=== PATIENT | male | born 1955 | race African-American/Black ===

== ENCOUNTER 2016-12-03 12:38 | Inpatient (IN) | payer OTHER ==
[2016-12-03 13:56] VITALS: BMI 21.1
[2016-12-03 16:27] LABS: MCH 26.4 pg (25.7-33.7); MEAN CELL VOLUME 82.6 fl (80-96); MEAN PLT VOLUME 10.5 fl (7.5-11.1); PLATELET COUNT 378 K/MM3 (134-434); WHITE BLOOD COUNT 15.3 K/mm3 (4.0-10.0)
[2016-12-03 16:53] LABS: ALBUMIN 4.5 g/dl (3.4-5.0); BILIRUBIN,TOTAL 0.7 mg/dL (0.2-1.0); CALCIUM 9.7 mg/dL (8.5-10.1); CREATININE 1.8 mg/dL (0.7-1.3); TOT PROT 9.3 g/dl (6.4-8.2)
--- NOTE | 2016-12-03 17:02 | HP ---
Admission [facility] - [facility] Chief Complaint: I want to stop using crack/cocaine Allergies/Adverse Reactions: Allergies Allergy/AdvReac Type Severity Reaction Status Date / Time No Known Allergies Allergy Verified 12/03/16 16:37 History of Present Illness: 61 year old male with long hx of crack/cocaine use. Longest sobriety has been 2 years (1987). Reports history of Hep C, but has never been treated. Last rehab AC, ~ 1 and half ago. [facility], about 4 years ago Exam Limitations: Physical Impairment (walks with cane) - Ebola screening Have you traveled outside of the country in the last 21 days: No Have you had contact with anyone from an Ebola affected area: No Have you been sick,other than usual withdrawal symptoms: No Do you have a fever: No - Review of Systems Constitutional: No Symptoms Reported EENT: reports: Other (Blind in Right Eye- Secondary to glaucoma/infection) Respiratory: reports: No Symptoms reported Cardiac: reports: No Symptoms Reported GI: reports: No Symptoms Reported : reports: No Symptoms Reported Integumentary: reports: No Symptoms Reported Neuro: reports: No Symptoms reported Hematology: reports: No Symptoms Reported Psychiatric: reports: No Sypmtoms Reported, Orientated x3 Patient History - Patient Medical History Hx Anemia: No Hx Asthma: No Hx Chronic Obstructive Pulmonary Disease (COPD): No Hx Cancer: No Hx Cardiac Disorders: No Hx Congestive Heart Failure: No Hx Hypertension: Yes Hx Hypercholesterolemia: Yes (ON MED) Hx Pacemaker: No HX Cerebrovascular Accident: No Hx Seizures: No Hx Dementia: No Hx Diabetes: No Hx Gastrointestinal Disorders: No Hx Liver Disease: No Hx Genitourinary Disorders: No Hx Sexually Transmitted Disorders: No Hx Renal Disease (ESRD): No Hx Thyroid Disease: No Hx Human Immunodeficiency Virus (HIV): No (NEGATIVE HX) Hx Hepatitis C: Yes (NO [place]) Hx Depression: No Hx Suicide Attempt: No Hx Bipolar Disorder: No Hx Schizophrenia: No Other Medical History: Gout, Arthritis - Patient Surgical History Past Surgical History: Yes Hx Neurologic Surgery: No Hx Cataract Extraction: No Hx Cardiac Surgery: No Hx Lung Surgery: No Hx Breast Surgery: No Hx Breast Biopsy: No Hx Abdominal Surgery: Yes (LEFT INGUINAL HERNIA REPAIR-DATE UNKN ;RIGHT INGUINAL HERNIA REPAIR 05/09/15) Hx Appendectomy: No Hx Cholecystectomy: No Hx Genitourinary Surgery: No Hx Section: No Hx Orthopedic Surgery: No Anesthesia Reaction: No - PPD History Documented Results: Negative w/o proof Date: 03/14/15 Results: 0 MM PPD to be Administered?: Yes - Reproductive History Patient is a Female of Child Bearing Age (11 -55 yrs old): No - Smoking Cessation Smoking history: Current every day smoker Have you smoked in the past 12 months: Yes Aproximately how many cigarettes per day: 20 Hx Chewing Tobacco Use: No Initiated information on smoking cessation: Yes 'Breaking Loose' booklet given: 12/03/16 - Substance & Tx. History Hx Alcohol Use: No Hx Substance Use: Yes Substance Use Type: Cocaine Hx Substance Use Treatment: Yes - Substances Abused Crack Route: Smoking Frequency: Daily Amount used: $100 Age of first use: 28 Date of Last Use: 12/03/16 Marijuana/Hashish Route: Smoking Frequency: No use in 30 days Amount used: 1 joint Age of first use: 12 Date of Last Use: 12/03/15 Family Disease History - Family Disease History Family Disease History: Diabetes: Mother (HTN ), Other: Grandparent ( ), Father (HTN ), Mother Admission Physical Exam [facility] - Vital Signs Vital Signs: Vital Signs - 24 hr 12/03/16 13:54 Temperature 97.5 F L Pulse Rate 96 H Respiratory 20 Rate Blood Pressure 116/83 - Physical General Appearance: Yes: Appropriately Dressed HEENTM: Yes: Hearing grossly Normal, Other (Blind in right eye ~ 2 cm soft mobile mass, non tender) Respiratory: Yes: Chest Non-Tender, Lungs Clear, Normal Breath Sounds Neck: Yes: Supple Breast: Yes: Breast Exam Deferred Cardiology: Yes: Regular Rhythm, Regular Rate, S1, S2 Abdominal: Yes: Normal Bowel Sounds, Non Tender, Flat, Soft Genitourinary: Yes: Within Normal Limits Back: Yes: Other (~ 7 x 4 cm lower back soft mass, non tender - patient reports present more than 10 years has not changed in size) Extremities: Yes: Within Normal Limits Neurological: Yes: Fully Oriented, Alert, Motor Strength 5/5 Integumentary: Yes: Dry Lymphatic: Yes: Within Normal Limits - Diagnostic (1) Cocaine dependence Current Visit: Yes Status: Chronic Qualifiers: Substance use status: uncomplicated Qualified Code(s): F14.20 - Cocaine dependence, uncomplicated (2) Blindness of right eye Current Visit: Yes Status: Chronic (3) Glaucoma, right eye Current Visit: Yes Status: Chronic Qualifiers: Glaucoma stage: stage unspecified (4) Gout Current Visit: No Status: Inactive (5) Hepatitis C Current Visit: Yes Status: Chronic Qualifiers: Hepatic coma status: without hepatic coma (6) Hypertension Current Visit: Yes Status: Chronic Qualifiers: Hypertension type: essential hypertension Qualified Code(s): I10 - Essential (primary) hypertension (7) Nicotine dependence Current Visit: Yes Status: Chronic Qualifiers: Nicotine product type: cigarettes Substance use status: uncomplicated Qualified Code(s): F17.210 - Nicotine dependence, cigarettes, uncomplicated (8) Arthritis Current Visit: Yes Status: Chronic Cleared for Admission [facility] - Detox or Rehab Claeared for Rehab Admission: Yes S Breath Alcohol Content Breath Alcohol Content: 0 Urine Drug Screen - Results Drug Screen Negative: No Urine Drug Screen Results: BANDAR-Cocaine
[2016-12-03] MEDS ORDERED: ACETAMINOPHEN 325 MG TABLET (FP) PO PRN (17:29)
[2016-12-03] MEDS ORDERED: guaiFENesin/D-METHORPHAN HB 10 ML UNIT-DOSE CUPS PO PRN (17:29)
[2016-12-03] MEDS ORDERED: MAG HYDROX/AL HYDROX/SIMETH 30 ML UNIT-DOSE CUP PO PRN (17:29)
[2016-12-03] MEDS ORDERED: MAGNESIUM HYDROX 2400MG/30ML ORAL SUSPENSION 30 ML CUP PO PRN (17:29)
[2016-12-03] MEDS ORDERED: P-EPHED 60MG/TRIPROLIDI 2.5MG TABLET PO PRN (17:29)
[2016-12-03] MEDS ORDERED: MENTHOL/PHENOL 1 EACH UD MM PRN (17:29)
[2016-12-03] MEDS ORDERED: NICOTINE POLACRILEX 2 MG GUM BC PRN (17:29)
[2016-12-03] MEDS ORDERED: MAGNESIUM CITRATE 300 ML BOTTLE PO PRN (17:29)
[2016-12-03] MEDS ORDERED: LOPERAMIDE HCL 2 MG CAPSULE PO PRN (17:29)
[2016-12-03] MEDS ORDERED: TUBERCULIN PPD 5 TU/0.1ML VIAL ID ONE (20:36)
[2016-12-03] MEDS: THIAMINE HCL 100 MG TABLET (FP) PO SCH (22:02)
[2016-12-03 23:40] LABS: URINE APPEARANCE CLEAR; URINE BILIRUBIN NEGATIVE (NEGATIVE); URINE BLOOD NEGATIVE (NEGATIVE); URINE COLOR YELLOW; URINE GLUCOSE (UA) NEGATIVE (NEGATIVE); URINE KETONE TRACE (NEGATIVE); URINE LEUK ESTERASE NEGATIVE (NEGATIVE); URINE NITRITE NEGATIVE (NEGATIVE); URINE PROTEIN NEGATIVE (NEGATIVE); URINE UROBILINOGEN NEGATIVE E.U./dl (0.2-1.0)
--- NOTE | 2016-12-04 09:23 | HP ---
Psychiatrist Admission - Data Date of interview: 12/04/16 Admission source: Self-referred Identifying data: This is one of the multiple [facility] admission for this 61 years old single Black male,father of 37 years old daughter unemployed on SSI, homeless Medical History: Significant for HTN, Hyperlipidemia, Hep C, Glaucoma Rt Eye, Blind right eye, Gout left foot, Arthritis, S/P CVA and S/P bilateral Inguinal Hernia repair. Smokes cigarettes 1ppd Psychiatric History: Denies history of previous psychiatric treatment Physical/Sexual Abuse/Trauma History: Denies history of physical, sexual abuse as well as DV relationship Additional Comment: Reports history of multiple arrests including one felony conviction. Denies being currently on probation/parole at present Vital Signs: Vital Signs - 24 hr 12/03/16 12/04/16 12/04/16 13:54 01:53 03:30 Temperature 97.5 F L Pulse Rate 96 H Respiratory 20 18 18 Rate Blood Pressure 116/83 12/04/16 06:34 Temperature 98.5 F Pulse Rate 88 Respiratory 18 Rate Blood Pressure 100/70 Allergies/Adverse Reactions: Allergies Allergy/AdvReac Type Severity Reaction Status Date / Time No Known Allergies Allergy Verified 12/03/16 16:37 Date of last physical exam: 12/03/16 Concur with the findings of this exam: Yes - Substance Abuse/Tx History Hx Substance Use: Yes Substance Use Type: Cocaine (Started smoking crack cocaine at age 28, consumes $ 100 worth daily. Last smoked on 12/03/16), Marijuana (Started smoking marijuana at age 12. Last smoked years ago) Hx Substance Use Treatment: Yes (one previous inpt rehab @ [facility] & 3 @ [facility] and 3 inpt rehab @ [facility]) - Admission Criteria Previous failed treatment: Yes Poor recovery environment: Yes Comorbidities: Yes Lacks judgement: Yes Mental Status Exam - Mental Status Exam Alert and Oriented to: Time, Place, Person Cognitive Function: Fair Patient Appearance: Well Groomed Mood: Hopeful, Euthymic Affect: Appropriate Patient Behavior: Cooperative Speech Pattern: Clear Voice Loudness: Normal Thought Process: Intact Thought Disorder: Not Present Hallucinations: Denies Suicidal Ideation: Denies Homicidal Ideation: Denies Insight/Judgement: Fair Sleep: Fair Appetite: Fair Muscle strength/Tone: Normal Gait/Station: Other (walked with a cane(residual stroke)) Psychiatric Findings - Problem List ([place] 1, 2,3) (1) Cocaine dependence Current Visit: Yes Status: Chronic Qualifiers: Substance use status: uncomplicated Qualified Code(s): F14.20 - Cocaine dependence, uncomplicated (2) Nicotine dependence Current Visit: Yes Status: Chronic Qualifiers: Nicotine product type: cigarettes Substance use status: uncomplicated Qualified Code(s): F17.210 - Nicotine dependence, cigarettes, uncomplicated (3) Arthritis Current Visit: Yes Status: Chronic (4) Blindness of right eye Current Visit: Yes Status: Chronic (5) Glaucoma, right eye Current Visit: Yes Status: Chronic Qualifiers: Glaucoma stage: stage unspecified (6) Hepatitis C Current Visit: Yes Status: Chronic Qualifiers: Hepatic coma status: without hepatic coma (7) Hypertension Current Visit: Yes Status: Chronic Qualifiers: Hypertension type: essential hypertension Qualified Code(s): I10 - Essential (primary) hypertension (8) Gout Current Visit: Yes Status: Acute - Initial Treatment Plan Initial Treatment Plan: Monitor progress
[2016-12-04] MEDS: PRENATAL VITAMINS W/ FOLIC ACID TABLET (FP) PO SCH (09:36)
[2016-12-04] MEDS: amLODIPine BESYLATE 10 MG TABLET (FP) PO SCH (09:36)
[2016-12-04] MEDS: NICOTINE 21 MG/24 HOURS TOPICAL PATCH TD SCH (09:36)
[2016-12-04 12:53] LABS: HIV 1 & 2 AB NEGATIVE; HIV 1 AGp24 NEGATIVE
--- NOTE | 2016-12-04 14:26 | EKG ---
Test Reason : Blood Pressure : / mmHG Vent. Rate : 074 BPM Atrial Rate : 074 BPM P-R Int : 166 ms QRS Dur : 110 ms QT Int : 392 ms P-R-T Axes : 074 009 -13 degrees QTc Int : 435 ms NORMAL SINUS RHYTHM VOLTAGE CRITERIA FOR LEFT VENTRICULAR HYPERTROPHY ST ELEVATION, CONSIDER EARLY REPOLARIZATION, PERICARDITIS, OR INJURY ABNORMAL ECG WHEN COMPARED WITH ECG OF 03-DEC-2016 21:09, T WAVE INVERSION NO LONGER EVIDENT IN LATERAL LEADS Confirmed by PAMELLA PAT MD ([id number]) on 12/04/2016 2:25:42 PM Referred By: Confirmed By:PAMELLA PAT MD
--- NOTE | 2016-12-04 14:27 | EKG ---
Test Reason : Blood Pressure : / mmHG Vent. Rate : 077 BPM Atrial Rate : 077 BPM P-R Int : 164 ms QRS Dur : 102 ms QT Int : 386 ms P-R-T Axes : 066 017 -41 degrees QTc Int : 436 ms POOR DATA QUALITY, INTERPRETATION MAY BE ADVERSELY AFFECTED NORMAL SINUS RHYTHM VOLTAGE CRITERIA FOR LEFT VENTRICULAR HYPERTROPHY ST ELEVATION, CONSIDER EARLY REPOLARIZATION, PERICARDITIS, OR INJURY T WAVE ABNORMALITY, CONSIDER INFEROLATERAL ISCHEMIA ABNORMAL ECG NO PREVIOUS ECGS AVAILABLE Confirmed by PAMELLA PAT MD ([id number]) on 12/04/2016 2:27:29 PM Referred By: Confirmed By:PAMELLA PAT MD
[2016-12-04] MEDS: THIAMINE HCL 100 MG TABLET (FP) PO SCH (21:26)
[2016-12-05] MEDS: PRENATAL VITAMINS W/ FOLIC ACID TABLET (FP) PO SCH (09:39)
[2016-12-05] MEDS: amLODIPine BESYLATE 10 MG TABLET (FP) PO SCH (09:39)
[2016-12-05] MEDS: NICOTINE 21 MG/24 HOURS TOPICAL PATCH TD SCH (09:40)
[2016-12-05 10:10] LABS: BASOPHIL 0.4 % (0-2.0); EOSINOPHIL 2.7 % (0-4.5); MCH 26.9 pg (25.7-33.7); MCHC 32.7 g/dl (32.0-35.9); MEAN CELL VOLUME 82.4 fl (80-96); MEAN PLT VOLUME 9.4 fl (7.5-11.1); NEUTROPHILS 65.7 % (42.8-82.8); PLATELET COUNT 283 K/MM3 (134-434); RDW 14.8 % (11.9-15.9); WHITE BLOOD COUNT 9.7 K/mm3 (4.0-10.0)
[2016-12-05 10:38] LABS: CALCIUM 8.6 mg/dL (8.5-10.1); CREATININE 1.5 mg/dL (0.7-1.3)
[2016-12-05] MEDS: THIAMINE HCL 100 MG TABLET (FP) PO SCH (21:11)
[2016-12-06] MEDS: PRENATAL VITAMINS W/ FOLIC ACID TABLET (FP) PO SCH (09:42)
[2016-12-06] MEDS: amLODIPine BESYLATE 10 MG TABLET (FP) PO SCH (09:42)
[2016-12-06] MEDS: NICOTINE 21 MG/24 HOURS TOPICAL PATCH TD SCH (09:43)
[2016-12-06] MEDS: THIAMINE HCL 100 MG TABLET (FP) PO SCH (21:03)
[2016-12-07] MEDS: NICOTINE 21 MG/24 HOURS TOPICAL PATCH TD SCH (09:28)
[2016-12-07] MEDS: amLODIPine BESYLATE 10 MG TABLET (FP) PO SCH (09:28)
[2016-12-07] MEDS: PRENATAL VITAMINS W/ FOLIC ACID TABLET (FP) PO SCH (09:28)
[2016-12-07] MEDS: THIAMINE HCL 100 MG TABLET (FP) PO SCH (21:25)
[2016-12-08] MEDS: amLODIPine BESYLATE 10 MG TABLET (FP) PO SCH (09:33)
[2016-12-08] MEDS: NICOTINE 21 MG/24 HOURS TOPICAL PATCH TD SCH (09:33)
[2016-12-08] MEDS: PRENATAL VITAMINS W/ FOLIC ACID TABLET (FP) PO SCH (09:33)
[2016-12-08] MEDS: THIAMINE HCL 100 MG TABLET (FP) PO SCH (21:34)
[2016-12-09] MEDS: amLODIPine BESYLATE 10 MG TABLET (FP) PO SCH (09:44)
[2016-12-09] MEDS: NICOTINE 21 MG/24 HOURS TOPICAL PATCH TD SCH (09:44)
[2016-12-09] MEDS: PRENATAL VITAMINS W/ FOLIC ACID TABLET (FP) PO SCH (09:44)
[2016-12-09] MEDS: THIAMINE HCL 100 MG TABLET (FP) PO SCH (21:39)
[2016-12-09] MEDS: diphenhydrAMINE HCL 50 MG CAPSULE PO PRN (21:40)
[2016-12-09] MEDS: IBUPROFEN 400 MG TABLET (FP) PO PRN (22:12)
[2016-12-10] MEDS: amLODIPine BESYLATE 10 MG TABLET (FP) PO SCH (09:32)
[2016-12-10] MEDS: PRENATAL VITAMINS W/ FOLIC ACID TABLET (FP) PO SCH (09:32)
[2016-12-10] MEDS: NICOTINE 21 MG/24 HOURS TOPICAL PATCH TD SCH (09:32)
[2016-12-10] MEDS: IBUPROFEN 400 MG TABLET (FP) PO PRN (12:54)
[2016-12-10] MEDS: diphenhydrAMINE HCL 50 MG CAPSULE PO PRN (21:18)
[2016-12-10] MEDS: THIAMINE HCL 100 MG TABLET (FP) PO SCH (21:18)
[2016-12-11] MEDS: amLODIPine BESYLATE 10 MG TABLET (FP) PO SCH (09:45)
[2016-12-11] MEDS: PRENATAL VITAMINS W/ FOLIC ACID TABLET (FP) PO SCH (09:45)
[2016-12-11] MEDS: NICOTINE 21 MG/24 HOURS TOPICAL PATCH TD SCH (09:45)
[2016-12-11 10:17] LABS: CALCIUM 9.1 mg/dL (8.5-10.1); CREATININE 1.3 mg/dL (0.7-1.3); URIC ACID 6.4 mg/dL (2.6-7.2)
[2016-12-11] MEDS ORDERED: NAPROXEN 500 MG TABLET (FP) PO ONE (14:56)
--- NOTE | 2016-12-11 14:59 | PN ---
[facility] Progress Note Note: Pt. is S/P CVA with right sided weakness,he's on aspirin 81mg. X-ray of Rt. hand = gout & degenerative changes. Vital Signs - 8 hr 12/11/16 10:03 Pulse Rate 74 Respiratory 16 Rate Blood Pressure 100/66 P : Naprosyn & aspirin
[2016-12-11] MEDS: ASPIRIN COATED 81 MG TABLET.EC PO SCH (15:37)
[2016-12-11] MEDS: THIAMINE HCL 100 MG TABLET (FP) PO SCH (22:07)
[2016-12-11] MEDS: NAPROXEN 500 MG TABLET (FP) PO SCH (22:07)
[2016-12-12 07:31] VITALS: TEMP 97.6
[2016-12-12] MEDS: PRENATAL VITAMINS W/ FOLIC ACID TABLET (FP) PO SCH (10:02)
[2016-12-12] MEDS: amLODIPine BESYLATE 10 MG TABLET (FP) PO SCH (10:02)
[2016-12-12] MEDS: NAPROXEN 500 MG TABLET (FP) PO SCH (10:02)
[2016-12-12] MEDS: NICOTINE 21 MG/24 HOURS TOPICAL PATCH TD SCH (10:02)
[2016-12-12] MEDS: ASPIRIN COATED 81 MG TABLET.EC PO SCH (10:02)
[2016-12-12 10:31] VITALS: BP 119/84; PULSE 71
--- NOTE | 2016-12-12 11:05 | PN ---
Psychiatric Progress Note Vital Signs: Vital Signs Period Temp Pulse Resp BP Sys/Will Pulse Ox Last 24 Hr 97.6 F 68-71 18-18 119-121/84-88 Date of Session: 12/12/16 Chief Complaint:: Psychiatrist Discharge Note HPI: Patient addressing CocaineDependence comorbid with Nicotine Dependence ROS: Arthritis, Glaucoma, Hep C, HTN, Gout were medically managed Current Medications: Active Medications Generic Name Dose Route Start Last Admin Trade Name Freq PRN Reason Stop Dose Admin Acetaminophen 650 mg 12/03/16 17:29 Tylenol - PO Q4H PRN PAIN Al Hydroxide/Mg Hydroxide 30 ml 12/03/16 17:29 Mylanta Oral Suspension - PO Q6H PRN DYSPEPSIA Amlodipine Besylate 10 mg 12/04/16 10:00 12/12/16 10:02 Norvasc - PO 10 mg DAILY MCKENNA Administration Aspirin 81 mg 12/11/16 15:00 12/12/16 10:02 Ecotrin - PO 81 mg DAILY MCKENNA Administration Diphenhydramine HCl 50 mg 12/03/16 17:29 12/10/16 21:18 Benadryl - PO 50 mg HSMR1 PRN Administration INSOMNIA Eucalyptus/Menthol/Phenol/Sorbitol 1 each 12/03/16 17:29 Cepastat Lozenge - MM Q4H PRN SORE THROAT Guaifenesin 10 ml 12/03/16 17:29 Robitussin Dm - PO Q6H PRN COUGH Loperamide HCl 4 mg 12/03/16 17:29 Imodium - PO Q6H PRN DIARRHEA Magnesium Citrate 300 ml 12/03/16 17:29 Citroma - PO Q48H PRN CONSTIPATION Magnesium Hydroxide 30 ml 12/03/16 17:29 Milk Of Magnesia - PO DAILY PRN CONSTIPATION Naproxen 500 mg 12/11/16 22:00 12/12/16 10:02 Naprosyn - PO 500 mg BID MCKENNA Administration Nicotine 21 mg 12/04/16 10:00 12/12/16 10:02 Nicoderm Patch - TD Not Given DAILY [facility] Nicotine Polacrilex 2 mg 12/03/16 17:29 Nicorette Gum - BC Q2H PRN NICOTINE REPLACEMENT RX Multivit/Folic Acid/Iron 1 tab 12/04/16 10:00 12/12/16 10:02 Vitamins (Sjr) - PO 1 tab DAILY MCKENNA Administration Pseudoephedrine/Triprolidine 1 combo 12/03/16 17:29 Actifed - PO TID PRN NASAL CONGESTION Thiamine HCl 100 mg 12/03/16 22:00 12/11/16 22:07 Vitamin B1 - PO 100 mg HS MCKENNA Administration Current Side Effect: No Lab tests reviewed: Yes Provider note:: Patient has completed this program today. He has partially met his treatment goals and will continue to address his issues in outpatient treatment at [facility]. Told freelance writer that from his participation in this program, he has learned to identify his triggers and make good use of sober support services in order to maintain abstinent. He is stable for discharge today Total face to face time:: 35 Mental Status Exam - Mental Status Exam Alert and Oriented to: Time, Place, Person Cognitive Function: Fair Patient Appearance: Well Groomed Mood: Hopeful, Euthymic Affect: Appropriate Patient Behavior: Cooperative Speech Pattern: Clear Voice Loudness: Normal Thought Process: Intact, Goal Oriented Thought Disorder: Not Present Hallucinations: Denies Suicidal Ideation: Denies Homicidal Ideation: Denies Insight/Judgement: Fair Sleep: Fair Appetite: Good Muscle strength/Tone: Normal Gait/Station: Normal Psychiatric Treatment Plan - Problem List (1) Cocaine dependence Current Visit: Yes Qualifiers: Substance use status: uncomplicated Qualified Code(s): F14.20 - Cocaine dependence, uncomplicated (2) Nicotine dependence Current Visit: Yes Qualifiers: Nicotine product type: cigarettes Substance use status: uncomplicated Qualified Code(s): F17.210 - Nicotine dependence, cigarettes, uncomplicated (3) Arthritis Current Visit: Yes (4) Blindness of right eye Current Visit: Yes (5) Glaucoma, right eye Current Visit: Yes Qualifiers: Glaucoma stage: stage unspecified (6) Hepatitis C Current Visit: Yes Qualifiers: Hepatic coma status: without hepatic coma (7) Hypertension Current Visit: Yes Qualifiers: Hypertension type: essential hypertension Qualified Code(s): I10 - Essential (primary) hypertension (8) Gout Current Visit: Yes Initial treatment plan: Patient is discharged today and referred to [facility] for outpatient treatment
== END 2016-12-12 11:25 | disposition home or self-care (01) | DRG 772 ==
LOC: YASAS 12:38 → Y3W 18:27
PROVIDERS: ADMIT Psychiatry & Neurology Psychiatry; ATTEND Psychiatry & Neurology Psychiatry
PROC: HZ42ZZZ Group Counseling for Substance Abuse Treatment, Cognitive-Behavioral (ICD-10-PCS; principal; 2016-12-12)
DX: F14.20 Cocaine dependence, uncomplicated (principal); F17.210 Nicotine dependence, cigarettes, uncomplicated; I10 Essential (primary) hypertension; B18.2 Chronic viral hepatitis C; H40.9 Unspecified glaucoma; H54.8 Legal blindness, as defined in USA; M12.9 Arthropathy, unspecified
CPT/HCPCS: 36415; 73130-TC-RT; 80048; 80053; 81003; 84550; 85025; 85027; 86593; 87389; 93005; 93010